=== PATIENT | male | born 1990 | race Caucasian/White ===

== ENCOUNTER 2016-09-07 15:43 | Emergency (ER) | payer SELFPAY ==
[~2016-09-07] VITALS: Ht 170.1 cm; Wt 61.2 kg
[2016-09-07] MEDS ORDERED: MEDROL DOSEPAK4 MG PO (16:07)
[2016-09-07] MEDS ORDERED: CLINDAMYCIN HC300 MG PO (16:07)
== END 2016-09-07 16:17 | disposition home or self-care (01) ==
LOC: ED 15:43
DX: J06.9 Acute upper respiratory infection, unspecified (principal); K08.89 Other specified disorders of teeth and supporting structures; F17.200 Nicotine dependence, unspecified, uncomplicated; Z88.0 Allergy status to penicillin; Z88.1 Allergy status to other antibiotic agents; Z88.2 Allergy status to sulfonamides

== ENCOUNTER 2017-04-29 10:05 | Emergency (ER) | payer SELFPAY ==
[~2017-04-29] VITALS: Ht 170.1 cm; Wt 63.5 kg
[~2017-04-29 10:05] MED LIST: CLINDAMYCIN HC300 MG PO; MEDROL DOSEPAK4 MG PO
[2017-04-29 10:57] LABS: BASO # 0.1 10*3/uL (0.0-0.1); BASO % 0.5 % (0.0-1.0); EOS % 0.3 % (1.0-4.0); HEMATOCRIT 49.8 % (42.0-52.0); HEMOGLOBIN 17.5 g/dl (14.0-18.0); LYMPH % 14.5 % (27.0-41.0); MEAN CELL VOLUME 87.5 fl (80.0-94.0); MEAN CORPUSCULAR HGB 30.8 pg (27.0-31.0); MEAN CORPUSCULAR HGB CONC 35.1 g/dl (33.0-37.0); MONO # 0.6 10*3/uL (0.1-1.0); MONO % 4.4 % (3.0-9.0); NEUT # 10.8 10*3/uL (2.3-7.9); PLATELET COUNT AUTOMATED 271 10*3/uL (130-400); RED BLOOD COUNT 5.69 10*6/uL (4.50-5.90); RED CELL DISTRI WIDTH 11.9 % (0-14.5); WHITE BLOOD COUNT 13.5 10*3/uL (4.8-10.8)
[2017-04-29 11:11] LABS: ALBUMIN 4.2 gm/dl (3.1-4.5); ALKALINE PHOSPHATASE 66 U/L (45-117); BUN 11 mg/dl (7-24); CHLORIDE 108 mmol/L (98-107); CREATININE 1.03 mg/dL (0.70-1.30); LIPASE 127 U/L (73-393); POTASSIUM 3.7 mmol/L (3.5-5.1); SGOT/AST 19 IU/L (3-35); SGPT/ALT 25 U/L (12-78); SODIUM 142 mmol/L (136-145); TOTAL PROTEIN 8.2 gm/dL (6.4-8.2)
[2017-04-29] MEDS ORDERED: PHENERGAN25 M3 PO (13:11)
== END 2017-04-29 13:31 | disposition home or self-care (01) ==
LOC: ED 10:05
PROVIDERS: Emergency Medicine
DX: K52.9 Noninfective gastroenteritis and colitis, unspecified (principal); F17.200 Nicotine dependence, unspecified, uncomplicated; F10.10 Alcohol abuse, uncomplicated; Z88.0 Allergy status to penicillin; Z88.2 Allergy status to sulfonamides; Z88.1 Allergy status to other antibiotic agents

== ENCOUNTER 2017-08-11 09:00 | Emergency (ER) | payer SELFPAY ==
[~2017-08-11] VITALS: Ht 170.1 cm; Wt 61.2 kg
[~2017-08-11 09:00] MED LIST changes: +PHENERGAN25 M3 PO
[2017-08-11 09:27] LABS: BASO # 0.1 10*3/uL (0.0-0.1); EOS # 0.2 10*3/uL (0.0-0.4); EOS % 2.9 % (1.0-4.0); HEMATOCRIT 47.5 % (42.0-52.0); HEMOGLOBIN 16.6 g/dl (14.0-18.0); LYMPH # 2.1 10*3/uL (1.3-4.4); LYMPH % 27.2 % (27.0-41.0); MEAN CORPUSCULAR HGB 30.4 pg (27.0-31.0); MEAN CORPUSCULAR HGB CONC 34.9 g/dl (33.0-37.0); MEAN PLATELET VOLUME 10.1 fl (9.6-12.3); MONO # 0.7 10*3/uL (0.1-1.0); MONO % 9.2 % (3.0-9.0); NEUT # 4.7 10*3/uL (2.3-7.9); NEUT % 59.6 % (47.0-73.0); PLATELET COUNT AUTOMATED 250 10*3/uL (130-400); RED BLOOD COUNT 5.46 10*6/uL (4.50-5.90); RED CELL DISTRI WIDTH 11.9 % (0-14.5); WHITE BLOOD COUNT 7.8 10*3/uL (4.8-10.8)
[2017-08-11 09:42] LABS: ALKALINE PHOSPHATASE 65 U/L (45-117); BUN 16 mg/dl (7-24); CHLORIDE 107 mmol/L (98-107); CREATININE 1.07 mg/dL (0.70-1.30); POTASSIUM 3.8 mmol/L (3.5-5.1); SGOT/AST 15 IU/L (3-35); SGPT/ALT 22 U/L (12-78); SODIUM 140 mmol/L (136-145); TOTAL PROTEIN 7.6 gm/dL (6.4-8.2)
[2017-08-11] MEDS ORDERED: Motrin,Rufen800 MG PO (12:12)
== END 2017-08-11 12:19 | disposition home or self-care (01) ==
LOC: ED 09:00
PROVIDERS: Physician Assistant
DX: Z88.0 Allergy status to penicillin (principal); Z88.2 Allergy status to sulfonamides; Z88.1 Allergy status to other antibiotic agents; F17.200 Nicotine dependence, unspecified, uncomplicated; N50.811 Right testicular pain

== ENCOUNTER 2017-09-11 07:58 | Inpatient (IN) | payer SELFPAY ==
[~2017-09-11] VITALS: Ht 170.1 cm; Wt 59.0 kg
[2017-09-11] VITALS (7 sets, daily range): BP systolic 108–145; BP diastolic 60–77
--- NOTE | ~2017-09-11 | CON ---
[place], [place] REPORT OF CONSULTATION NAME: ZANDER TRINH UNIT #: [id number] ROOM: [place] [address] DOCTOR: KAEL QUINTEROS DMD BIRTHDATE: [birth year] DOS: Consultation for a left-sided facial swelling. On exam, the patient denies any difficulty swallowing or breathing. Denies any improvement from admission. Moderate sized swelling on the left lower jaw. No submandibular or submental tenderness. Intraoral exam shows multiple carious teeth. Extensive caries noted. Lower left shows tooth #17 caries to the gumline and tooth #21 caries to the gumline. Moderate buccal space swelling noted. No sublingual swelling. Discussed treatment needed with the patient. Recommend full mouth extraction, but currently recommend extraction of teeth #17, 20 and 21 with incision and drainage. Discussed risks and benefits with the patient and recommend treatment under general to improve prognosis. KAEL QUINTEROS DMD CM:CONSTR:REPORT OF CONSULTATION 1725 09/12/172201 interface
--- NOTE | ~2017-09-11 | O ---
[place], [place] OPERATIVE NOTE NAME: [facility]INH [id number] UNIT #: [id number] ROOM: [place] [address] DOCTOR: KAEL QUINTEROS DMD BIRTHDATE: [birth year] DOS: PREOPERATIVE DIAGNOSES: Caries, left-sided facial cellulitis, intraoral abscess. POSTOPERATIVE DIAGNOSES: Caries, left-sided facial cellulitis, intraoral abscess. ANESTHESIA: General anesthesia with endotracheal intubation. FLUIDS: Minimal. ESTIMATED BLOOD LOSS: Minimal. COMPLICATIONS: None. CONDITION: To PACU, stable. DESCRIPTION OF PROCEDURE: The patient was brought to the OR and placed in supine position. IV and EKG lines were placed. Endotracheal intubation and general anesthesia was administered. The patient was prepped and draped for oral procedures. Risks and benefits were explained to the patient prior to surgery. Clinical exam and x-rays taken determined nonrestorable teeth #17, 20 and 21. PROCEDURES PERFORMED: Complete extraction of teeth #17, 20 and 21, incision and drainage and culture and sensitivity. Sutured with 4-0 Vicryl. Lavaged x 2. Throat pack removed. The patient left the OR in good condition and went to the PACU. KAEL QUINTEROS DMD CM:OPRECORD:OPERATIVE NOTE 26 34 KAEL QUINTEROS DMD 09/12/171833 interface
--- NOTE | ~2017-09-11 | CON ---
[place], [place] REPORT OF CONSULTATION NAME: ZANDER TRINH [facility] [id number] UNIT #: [id number] ROOM: 415 DOCTOR: CRISSY ALMANZA MD BIRTHDATE: [birth year] DOS: REASON FOR CONSULTATION: Left jaw abscess/osteomyelitis. HISTORY OF PRESENT ILLNESS: This is a 27-year-old male who is presenting with left-sided jaw swelling, which has been going on for the last 6 months and he has poor dental hygiene, but no insurance and could not seek medical attention for the same, although he presented to the ER a couple of times and he was given clindamycin for almost 2 weeks. Things used to get better and then come back. Finally, he came to the hospital this time and his vitals were noted to be stable. He himself claims subjective fever and chills. His labs interestingly shows normal ESR. No lactic acidosis. On review of his imaging, CT maxillofacial shows poor dentition with abscess at the apex of the left lower first molar eroding into the ____ bone fluid collection of 1 x 1.7 cm. Currently, he denies any headaches, but has a runny nose, difficulty swallowing solid foods, tolerating liquid diet. He has some dry cough, no chest pain, mild shortness of breath. Has mild abdominal pain. History of gastric ulcers. Occasional nausea. No vomiting, no diarrhea. The patient has allergy to PENICILLINS. He has developed severe anaphylactic reaction. Has tolerated amoxicillin with rash. He is getting clindamycin at this time. His blood cultures are negative so far. PAST MEDICAL HISTORY: Significant for: 1. Peptic ulcer disease. 2. Poor dental hygiene, multiple tooth extracted. PAST SURGICAL HISTORY: Tooth extraction 17-18 teeth extracted, both upper and lower jaw; history of tonsillectomy. SOCIAL HISTORY: He is an active smoker, smokes marijuana. No IV drug abuse. He snorted drugs many years ago and never relapsed back. Occasional alcohol use. FAMILY HISTORY: Father also has history of tooth problem; several of his teeth were removed, runs in his family. Mom has thyroid issues. ALLERGIES: PENICILLIN, SULFA DRUGS, AMOXICILLIN, AZITHROMYCIN. Penicillin allergy details mentioned in HPI. Rest, he is not aware of what type of allergy it has caused. PHYSICAL EXAMINATION: VITAL SIGNS: Noticed. GENERAL: The patient is alert, oriented and in discomfort because of pain. HEENT: Atraumatic, normocephalic. Oropharynx, several tooth decayed, both upper and lower jaw. External swelling noted in the left jaw extending up to the ear below the mandibular arch, not extending to the neck. NECK: It is hard, tender to palpation and warm. No draining sinuses. RESPIRATORY: Air entry bilaterally equal. No wheeze or crackles. [place], [place] REPORT OF CONSULTATION NAME: ZANDER TRINH UNIT #: [id number] ROOM: [facility] DOCTOR: CRISSY ALMANZA MD BIRTHDATE: [birth year] CARDIOVASCULAR: S1, S2 normal. Tachycardic. No murmur, rubs or gallops. ABDOMEN: Soft, diffusely tender upper abdomen on deep palpation. Bowel sounds present. EXTREMITIES: Lower extremities, no pedal edema. NEUROLOGIC: Grossly intact. LABS AND IMAGING: Reviewed mentioned in HPI. ASSESSMENT AND PLAN: 1. Left tooth abscess with surrounding cellulitis and concern for osteomyelitis, odontogenic in origin. 2. Multiple loose teeth. PLAN: At this time, I will add vancomycin for MRSA coverage with his extensive abscess. Continue clindamycin. We will give ceftriaxone one dose with Benadryl if he tolerates. We will continue ceftriaxone as well to cover the mouth kyree. I also suspect Actinomyces infection. We will request dental surgeon to send for cultures as well as pathology, currently has been consulted. For the concern for bone erosion, will be needing long-term treatment; also depends on the amount of debridement he will be needing. Thank you for your consult. Please call for any questions. Judith Almanza MD CM:CONSTR:REPORT OF CONSULTATION 8442 09/11/17 2348 interface
[~2017-09-11 07:58] MED LIST changes: +Motrin,Rufen800 MG PO
[2017-09-11 08:52] LABS: BASO # 0.1 10*3/uL (0.0-0.1); BASO % 0.4 % (0.0-1.0); EOS # 0.2 10*3/uL (0.0-0.4); EOS % 1.6 % (1.0-4.0); HEMATOCRIT 45.6 % (42.0-52.0); HEMOGLOBIN 15.7 g/dl (14.0-18.0); LYMPH # 1.9 10*3/uL (1.3-4.4); LYMPH % 16.1 % (27.0-41.0); MEAN CORPUSCULAR HGB 30.3 pg (27.0-31.0); MEAN CORPUSCULAR HGB CONC 34.4 g/dl (33.0-37.0); MEAN PLATELET VOLUME 9.9 fl (9.6-12.3); MONO # 1.2 10*3/uL (0.1-1.0); MONO % 10.1 % (3.0-9.0); NEUT # 8.3 10*3/uL (2.3-7.9); NEUT % 71.5 % (47.0-73.0); PLATELET COUNT AUTOMATED 223 10*3/uL (130-400); RED BLOOD COUNT 5.18 10*6/uL (4.50-5.90); WHITE BLOOD COUNT 11.6 10*3/uL (4.8-10.8)
[2017-09-11 09:08] LABS: ALBUMIN 3.6 gm/dl (3.1-4.5); ALKALINE PHOSPHATASE 59 U/L (45-117); BUN 15 mg/dl (7-24); CHLORIDE 106 mmol/L (98-107); CREATININE 0.89 mg/dL (0.70-1.30); SGOT/AST 15 IU/L (3-35); SGPT/ALT 22 U/L (12-78); SODIUM 139 mmol/L (136-145); TOTAL PROTEIN 7.4 gm/dL (6.4-8.2)
[2017-09-12] VITALS (13 sets, daily range): BP systolic 90–139; BP diastolic 45–90
[2017-09-12 07:42] LABS: ACT PARTIAL THROMBO TIME 25.1 SECONDS (20.8-31.5)
[2017-09-12 07:46] LABS: BASO # 0.1 10*3/uL (0.0-0.1); BASO % 0.4 % (0.0-1.0); EOS # 0.2 10*3/uL (0.0-0.4); EOS % 1.5 % (1.0-4.0); HEMATOCRIT 44.2 % (42.0-52.0); HEMOGLOBIN 14.9 g/dl (14.0-18.0); LYMPH # 1.8 10*3/uL (1.3-4.4); LYMPH % 15.6 % (27.0-41.0); MEAN CELL VOLUME 88.4 fl (80.0-94.0); MEAN CORPUSCULAR HGB 29.8 pg (27.0-31.0); MEAN CORPUSCULAR HGB CONC 33.7 g/dl (33.0-37.0); MONO # 1.2 10*3/uL (0.1-1.0); MONO % 10.3 % (3.0-9.0); NEUT # 8.4 10*3/uL (2.3-7.9); NEUT % 71.9 % (47.0-73.0); PLATELET COUNT AUTOMATED 230 10*3/uL (130-400); RED CELL DISTRI WIDTH 11.9 % (0-14.5); WHITE BLOOD COUNT 11.7 10*3/uL (4.8-10.8)
[2017-09-12 07:47] LABS: ALBUMIN 3.4 gm/dl (3.1-4.5); CHLORIDE 106 mmol/L (98-107); POTASSIUM 3.6 mmol/L (3.5-5.1); SODIUM 139 mmol/L (136-145)
[2017-09-12 07:49] LABS: ALKALINE PHOSPHATASE 57 U/L (45-117); CHOLESTEROL 155 mg/dL (<200); HDL CHOLESTEROL 43 mg/dl (40-60); PHOSPHOROUS 3.3 mg/dL (2.5-4.9); SGOT/AST 15 IU/L (3-35); SGPT/ALT 17 U/L (12-78); TOTAL PROTEIN 6.9 gm/dL (6.4-8.2)
[2017-09-12 07:53] LABS: BUN 5 mg/dl (7-24)
[2017-09-12 08:16] LABS: CREATININE 0.82 mg/dL (0.70-1.30)
[2017-09-12 08:25] LABS: VITAMIN D, 25-HYDROXY 20.9 ng/mL (30-100)
[2017-09-12 08:35] LABS: LDL CHOLESTEROL 91 mg/dL (9-159); TRIGLYCERIDES 106 mg/dl (<150); VLDL CHOLESTEROL 21 mg/dL (6-40)
[2017-09-13] VITALS: BP 102/56
[2017-09-13 04:00] VITALS: BP 103/61
[2017-09-13 06:08] LABS: BASO % 0.2 % (0.0-1.0); EOS % 0.1 % (1.0-4.0); HEMATOCRIT 41.6 % (42.0-52.0); HEMOGLOBIN 14.5 g/dl (14.0-18.0); LYMPH % 7.8 % (27.0-41.0); MEAN CELL VOLUME 86.3 fl (80.0-94.0); MEAN CORPUSCULAR HGB 30.1 pg (27.0-31.0); MEAN CORPUSCULAR HGB CONC 34.9 g/dl (33.0-37.0); MEAN PLATELET VOLUME 10.3 fl (9.6-12.3); MONO # 0.4 10*3/uL (0.1-1.0); MONO % 3.2 % (3.0-9.0); NEUT # 11.2 10*3/uL (2.3-7.9); NEUT % 88.4 % (47.0-73.0); PLATELET COUNT AUTOMATED 257 10*3/uL (130-400); RED BLOOD COUNT 4.82 10*6/uL (4.50-5.90); RED CELL DISTRI WIDTH 11.4 % (0-14.5); WHITE BLOOD COUNT 12.6 10*3/uL (4.8-10.8)
[2017-09-13 06:33] LABS: BUN 9 mg/dl (7-24); CHLORIDE 106 mmol/L (98-107); CREATININE 0.66 mg/dL (0.70-1.30); POTASSIUM 3.6 mmol/L (3.5-5.1); SODIUM 140 mmol/L (136-145)
[2017-09-13 08:00] VITALS: BP 95/50
[2017-09-13 12:00] VITALS: BP 106/58
[2017-09-13 16:00] VITALS: BP 112/57
[2017-09-13 20:00] VITALS: BP 117/78
[2017-09-14] VITALS: BP 119/56
[2017-09-14 08:00] VITALS: BP 107/60
[2017-09-14 12:00] VITALS: BP 111/67
[2017-09-14 16:00] VITALS: BP 103/63
[2017-09-14 20:00] VITALS: BP 122/81
[2017-09-15] VITALS: BP 122/70
[2017-09-15 08:00] VITALS: BP 103/53
[2017-09-15 08:02] LABS: BASO # 0.1 10*3/uL (0.0-0.1); BASO % 0.8 % (0.0-1.0); EOS # 0.3 10*3/uL (0.0-0.4); EOS % 3.9 % (1.0-4.0); HEMATOCRIT 38.8 % (42.0-52.0); HEMOGLOBIN 13.5 g/dl (14.0-18.0); LYMPH # 2.7 10*3/uL (1.3-4.4); LYMPH % 43.1 % (27.0-41.0); MEAN CORPUSCULAR HGB 30.3 pg (27.0-31.0); MEAN CORPUSCULAR HGB CONC 34.8 g/dl (33.0-37.0); MEAN PLATELET VOLUME 10.2 fl (9.6-12.3); MONO # 0.7 10*3/uL (0.1-1.0); MONO % 10.7 % (3.0-9.0); NEUT # 2.6 10*3/uL (2.3-7.9); NEUT % 41.3 % (47.0-73.0); PLATELET COUNT AUTOMATED 245 10*3/uL (130-400); RED BLOOD COUNT 4.46 10*6/uL (4.50-5.90); RED CELL DISTRI WIDTH 11.6 % (0-14.5); WHITE BLOOD COUNT 6.4 10*3/uL (4.8-10.8)
[2017-09-15 12:00] VITALS: BP 115/72
[2017-09-15 16:00] VITALS: BP 119/51
[2017-09-15 20:00] VITALS: BP 128/54
[2017-09-16] VITALS: BP 108/68
[2017-09-16 07:02] LABS: BUN 18 mg/dl (7-24); CREATININE 0.83 mg/dL (0.70-1.30)
[2017-09-16 08:00] VITALS: BP 118/69
[2017-09-16 12:00] VITALS: BP 123/79
[2017-09-16 16:00] VITALS: BP 122/79
[2017-09-16] MEDS ORDERED: CLINDAMYCIN150 MG PO (19:39)
[2017-09-16] MEDS ORDERED: CEFTRIAXON1 GM/50 ML IV (19:39)
[2017-09-16 20:00] VITALS: BP 138/72
== END 2017-09-16 20:32 | disposition home or self-care (01) | DRG 872 ==
LOC: ED 07:58 → EDHOLD 11:22 → 4E 11:22 → ICCU 09-12 16:08 → 4E 09-13 10:15
PROVIDERS: Emergency Medicine; Family Medicine; Internal Medicine; Student in an Organized Health Care Education/Training Program
PROC: 0C9XXZ1 Drainage of Lower Tooth, External Approach, Multiple (ICD-10-PCS; principal; 2017-09-12)
PROC: 0CDXXZ1 Extraction of Lower Tooth, Multiple, External Approach (ICD-10-PCS; principal; 2017-09-12)
PROC: 05H433Z Insertion of Infusion Device into Left Innominate Vein, Percutaneous Approach (ICD-10-PCS; 2017-09-13)
DX: A41.9 Sepsis, unspecified organism (principal); D72.810 Lymphocytopenia; K04.7 Periapical abscess without sinus; M27.2 Inflammatory conditions of jaws; Z91.89 Other specified personal risk factors, not elsewhere classified; R79.82 Elevated C-reactive protein (CRP); K08.89 Other specified disorders of teeth and supporting structures; Z71.6 Tobacco abuse counseling; K02.9 Dental caries, unspecified; K27.9 Peptic ulcer, site unspecified, unspecified as acute or chronic, without hemorrhage or perforation; F17.210 Nicotine dependence, cigarettes, uncomplicated; Z88.0 Allergy status to penicillin; Z88.1 Allergy status to other antibiotic agents; Z88.2 Allergy status to sulfonamides; Z83.49 Family history of other endocrine, nutritional and metabolic diseases

== ENCOUNTER → 2017-09-24 | Outpatient (CLI) | payer SELFPAY ==
[~2017-09-24] MED LIST changes: +CEFTRIAXON1 GM/50 ML IV; +CLINDAMYCIN150 MG PO; +NORCO 5-325 TA1 EACH PO
== END | disposition home or self-care (01) ==
LOC: RESCLI 00:41
DX: Z09 Encounter for follow-up examination after completed treatment for conditions other than malignant neoplasm (principal); K04.7 Periapical abscess without sinus; M27.2 Inflammatory conditions of jaws; K08.9 Disorder of teeth and supporting structures, unspecified; F17.210 Nicotine dependence, cigarettes, uncomplicated

== ENCOUNTER 2017-10-09 12:48 | Emergency (ER) | payer SELFPAY ==
[~2017-10-09] VITALS: Ht 170.1 cm; Wt 61.2 kg
== END 2017-10-09 14:33 | disposition home or self-care (01) ==
LOC: ED 12:48
DX: S60.221A Contusion of right hand, initial encounter (principal); F12.10 Cannabis abuse, uncomplicated; F17.210 Nicotine dependence, cigarettes, uncomplicated; Z90.89 Acquired absence of other organs; Z79.899 Other long term (current) drug therapy; Z88.0 Allergy status to penicillin; Z88.2 Allergy status to sulfonamides; Z88.1 Allergy status to other antibiotic agents; W22.01XA Walked into wall, initial encounter; Y93.89 Activity, other specified; Y92.89 Other specified places as the place of occurrence of the external cause; Y99.9 Unspecified external cause status

== ENCOUNTER → 2018-11-26 | Outpatient (CLI) | payer SELFPAY ==
[~2018-11-26] MED LIST changes: +BETASEPT 118 M118 ML T; +Bactroban Oint22 GM T; +VIBRAMYCIN100 MG PO
== END | disposition home or self-care (01) ==
LOC: RESCLI 00:16
DX: N61.1 Abscess of the breast and nipple (principal); F17.200 Nicotine dependence, unspecified, uncomplicated